=== PATIENT | female | born 1990 | race Caucasian/White ===

== ENCOUNTER 2019-08-13 21:36 | Emergency (ER) | payer MEDICAID ==
[~2019-08-13] VITALS: Ht 160 cm; Wt 101.6 kg
[2019-08-13 21:43] VITALS: BP 150/83; Ht 160 cm; Wt 101.6 kg
== END 2019-08-13 21:50 | disposition home or self-care (01) ==
LOC: ED 21:36
DX: H66.92 Otitis media, unspecified, left ear (principal); J06.9 Acute upper respiratory infection, unspecified